=== PATIENT | male | born 1970 | race Caucasian/White ===

== ENCOUNTER 2018-09-12 06:20 | Day surgery (SDC) | payer BC ==
[2018-09-12] MEDS ORDERED: Lactated Ringers 1,000 ML IV SCH (06:30)
[2018-09-12] MEDS ORDERED: DIPRIVAN 200 MG/20 ML IV ONE ×2 (08:08→08:15)
[2018-09-12] MEDS ORDERED: Lactated Ringers 1,000 ML IV ONE (08:49)
[2018-09-12 09:24] VITALS: PULSE 64; O2SAT 98
[2018-09-12 09:47] VITALS: BP 129/78
--- NOTE | 2018-09-13 09:32 | OP ---
SURGERY DATE/TIME: 09/12/2018 08 PREOPERATIVE DIAGNOSIS: Screening colonoscopy. POSTOPERATIVE DIAGNOSIS: Normal colon. PROCEDURE: Colonoscopy. SURGEON: Ger Collins M.D. ANESTHESIA: MAC by [place] CRNA. ESTIMATED BLOOD LOSS: None. SPECIMENS: None. DESCRIPTION OF PROCEDURE: After informed written consent was obtained, the patient was taken to the endoscopy suite. He underwent monitored anesthesia and a digital rectal exam showed normal sphincter tone and no internal lesions. The scope was inserted into the rectum and sequentially the entire colonic mucosa was traversed. The level of cecum was reached and verified with direct visualization of the appendiceal orifice and ileocecal valve. Upon withdrawal careful mucosal inspection revealed no gross abnormalities. Prior to withdrawal retroflexion was performed and within normal limits. The scope was removed and the patient was transferred to the recovery room in good condition.
== END 2018-09-12 09:49 | disposition home or self-care (01) ==
LOC: SDC 06:20
PROVIDERS: ATTEND Family Medicine
DX: Z12.11 Encounter for screening for malignant neoplasm of colon (principal)
CPT/HCPCS: J2704